=== PATIENT | female | born 1980 | race Caucasian/White ===

== ENCOUNTER 2016-09-27 13:08 | Emergency (ER) | payer MEDICAID ==
[2016-09-27] MEDS ORDERED: Albuterol/Ipratropium 3.0-0.5 MG/3 ML Neb Soln ONE (13:51)
[2016-09-27] MEDS ORDERED: Codeine/guaiFENesin 100-10 MG/5 ML Syrup 5 ML Cup PO ONE (13:53)
[2016-09-27] MEDS ORDERED: Albuterol/Ipratropium 3.0-0.5 MG/3 ML Neb Soln NEB ONE (13:53)
--- NOTE | 2016-09-27 16:02 | EDM.PDOC ---
ED HISTORY OF PRESENT ILLNESS - General Chief Complaint: Fever Stated Complaint: ACHE,FEVER, COUGHING Time Seen by Provider: 09/27/16 13:31 Source: Reports: Patient, Family History Limitations: Reports: No limitations - History of Present Illness INITIAL COMMENTS - FREE TEXT/NARRATIVE: 35 years old w f with h/o low thyroid disease, came to the ed due to a dry cough. Patient is form [place] and ran out of her thyroid meds 3 days ago. She does not have her empty meds bottle and does not remember her meds she is taking. No N/V/D or other acute medical issues at his time. She does not smoke. Symptom Onset Date: 09/26/16 Symptom Onset Time: 07:00 Timing/Duration: Reports: Day(s):, Getting worse, Gradual onset Location, General: Reports: chest Quality: Reports: Other (dry cough) Improves with: Reports: Medication Worsens with: Reports: Cold therapy Context, General: Reports: Sick contact Associated Symptoms: Reports: cough, loss of appetite - Related Data Allergies/ADRs: Allergies Allergy/AdvReac Type Severity Reaction Status Date / Time clindamycin Allergy Hives Verified 09/27/16 13:36 Home Meds: Home Meds Albuterol [IJP: Ventolin HFA] 1 puff INH Q4HR PRN #2 inh 09/27/16 [Rx] Codeine/guaiFENesin [Robitussin AC] 5 ml PO BID PRN #200 ml 09/27/16 [Rx] Past Medical History 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: Psychiatric History: Reports: ADHD, Bipolar - Infectious Disease History Infectious Disease History: Reports: Chicken pox, Shingles Social & Family History - Tobacco Use Smoking Status *Q: Never Smoker Second Hand Smoke Exposure: No - Caffeine Use Caffeine Use: Reports: Coffee - Recreational Drug Use Recreational Drug Use: No ED ROS GENERAL - Review of Systems Review Of Systems: See Below Constitutional: Reports: no symptoms HEENT: Reports: No symptoms Respiratory: Reports: Cough Endocrine: Reports: no symptoms GI/Abdominal: Reports: No symptoms : Reports: no symptoms Musculoskeletal: Reports: no symptoms Skin: Reports: no symptoms Neurological: Reports: No Symptoms Psychiatric: Reports: No symptoms Hematologic/Lymphatic: Reports: no symptoms Immunologic: Reports: no symptoms ED EXAM, GENERAL - Physical Exam Exam: See Below Exam Limited By: No limitations General Appearance: alert, WD/WN, mild distress Eye Exam: bilateral eye: normal inspection Ears: normal external exam Ear Exam: bilateral ear: auricle normal Nose: normal inspection, normal mucosa, no blood Throat/Mouth: Normal inspection, Normal lips, Normal teeth, Normal gums, Normal oropharynx, Normal voice, No airway compromise Head: atraumatic, normocephalic Neck: normal inspection, supple, non-tender, full range of motion Respiratory/Chest: wheezing Cardiovascular: normal peripheral pulses, regular rate, rhythm, no edema, no gallop, no JVD, no murmur Peripheral Pulses: 2+: femoral (L), femoral (R) GI/Abdominal: normal bowel sounds, soft, non tender, no organomegaly (Female) Exam: Deferred Rectal (Female) Exam: Deferred Back Exam: normal inspection, full range of motion Extremities: normal inspection, normal range of motion, non-tender, no pedal edema, normal capillary refill Neurological: alert, oriented, CN II-XII intact, normal cognition, normal gait Psychiatric: normal affect, normal mood Skin Exam: Warm, Dry, Intact, Normal color, No rash Lymphatic: no adenopathy Course - Vital Signs Text/Narrative:: 35 years old w f with h/o low thyroid disease, came to the ed due to a dry cough. Patient is form [place] and ran out of her thyroid meds 3 days ago. She does not have her empty meds bottle and does not remember her meds she is taking. No N/V/D or other acute medical issues at his time. She does not smoke. PE: Persistent dry cough, mild exp wheezes Tx: Duoneb, cough meds Impression: Asthma, dry cough Reexam: Improved Plan: D/C with instructions. Last Recorded V/S: Last Vital Signs Temp 36.6 C 09/27/16 16:16 Pulse 96 09/27/16 16:16 Resp 16 09/27/16 16:16 BP 107/66 09/27/16 16:16 Pulse Ox 100 09/27/16 16:16 - Orders/Labs/Meds Orders: Active Orders 24 hr Category Date Time Status RT Aerosol Therapy [RC] ASDIRECTED Care 09/27/16 13:53 Active Meds: Medications Discontinued Medications Generic Name Dose Route Start Last Admin Trade Name Freq PRN Reason Stop Dose Admin Albuterol/Ipratropium Confirm 09/27/16 13:51 09/27/16 14:11 Duoneb 3.0-0.5 Mg/3 Ml Administered 09/27/16 13:52 3 ml Dose Administration 3 ml .ROUTE .STK-MED ONE Albuterol/Ipratropium 3 ml 09/27/16 13:53 09/27/16 14:12 Duoneb 3.0-0.5 Mg/3 Ml NEB 09/27/16 13:54 Not Given ONETIME ONE Guaifenesin/Codeine Phosphate 5 ml 09/27/16 13:53 09/27/16 14:38 Robitussin Ac PO 09/27/16 13:54 5 ml ONETIME ONE Administration Departure - Departure Time of Disposition: 16:11 Disposition: Home, Self-Care 01 Condition: good Clinical Impression: Recurrent dry cough Prescriptions: Albuterol [IJP: Ventolin HFA] 1 puff INH Q4HR PRN #2 inh PRN Reason: Cough Codeine/guaiFENesin [Robitussin AC] 5 ml PO BID PRN #200 ml PRN Reason: for severe cough only Referrals: PCP,None [Primary Care Provider] - Forms: ED Department Discharge Additional Instructions: Please f/u with your PMD this thursday since the name and dosage of the meds is not known. Please use the albuterol inhaler and take coughmeds for sever cough only. Please come back to the ed if your symptoms are getting worse acutely. - My Orders Last 24 Hours: My Active Orders 09/27/16 13:53 RT Aerosol Therapy [RC] ASDIRECTED - Assessment/Plan Last 24 Hours: My Active Orders 09/27/16 13:53 RT Aerosol Therapy [RC] ASDIRECTED
[2016-09-27 16:18] VITALS: BP 107/66
== END 2016-09-27 16:18 | disposition home or self-care (01) ==
LOC: FB.ED 13:08
DX: R05 Cough (principal); R06.2 Wheezing; F31.9 Bipolar disorder, unspecified; Z88.1 Allergy status to other antibiotic agents
CPT/HCPCS: 94640; 94664; 99283; A9270; J7620

== ENCOUNTER 2017-07-05 08:53 | Emergency (ER) | payer MEDICAID, OTHER ==
[2017-07-05] MEDS ORDERED: Azithromycin 250 MG Tab PO ONE (10:27)
[2017-07-05] MEDS ORDERED: cefTRIAXone 250 MG Vial IM ONE (10:27)
[2017-07-05 11:23] VITALS: BP 100/72
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
--- NOTE | 2017-07-10 10:02 | LETTER ---
July 08, 2017 Cata Moncada [address] [place] [address], [address] [id number] Dear Ms. Beey Jack Link: Your tests for STDs, gonorrhea, and Chlamydia came back negative. You have been treated for that potential possibility. Follow up with your doctor as needed. I was unable to reach you by phone. Consequently, I am sending this letter. You do not have to respond to this letter by calling me back, but if you have any questions, follow up with you regular doctor.
== END 2017-07-05 11:18 | disposition home or self-care (01) ==
LOC: FB.ED 08:53
DX: F43.10 Post-traumatic stress disorder, unspecified (principal); F41.9 Anxiety disorder, unspecified; E66.3 Overweight
CPT/HCPCS: 80305; 81001; 87491; 87591; 99283; A9270; J0696; 96372